=== PATIENT | male | born 1990 | race Caucasian/White ===

== ENCOUNTER 2018-10-19 01:32 | Emergency (ER) | payer OTHER ==
[~2018-10-19] VITALS: Ht 185.4 cm; Wt 71.7 kg
[2018-10-19 01:46] VITALS: BP 119/60; Ht 185.4 cm; Wt 71.7 kg
== END 2018-10-19 02:07 | disposition other institution (70) ==
LOC: ED 01:32
DX: Z02.89 Encounter for other administrative examinations (principal)